=== PATIENT | female | born 1965 | race Caucasian/White ===

== ENCOUNTER 2017-07-13 15:11 | Emergency (ER) | payer OTHER ==
[2017-07-13 15:42] VITALS: BP 158/72
--- NOTE | 2017-07-13 16:00 | UC ---
Hand/Wrist HPI - HPI Summary HPI Summary: FELL ON LEFT WRIST TODAY WHILE ICE SKATING ABOUT 3 HRS [facility] NON MEDICAL. HAS SWELLING, PAIN AND DEFORMITY. - History Of Current Complaint Chief Complaint: UCUpperExtremity Stated Complaint: LFT WRIST INJURY Time Seen by Provider: 07/13/17 15:49 Hx Obtained From: Patient, Family/Nailing Machine Operator - SISTER Onset/Duration: Sudden Onset, Lasting Hours, Still Present Severity Initially: Moderate Severity Currently: Moderate Pain Intensity: 5 Pain Scale Used: 0-10 Numeric Character Of Pain: Sharp, Aching Aggravating Factor(s): Movement Alleviating Factor(s): Rest, Ice Associated Signs And Symptoms: Positive: Swelling Related History: Dominant Hand Right - Allergies/Home Medications Allergies/Adverse Reactions: Allergies Allergy/AdvReac Type Severity Reaction Status Date / Time Sulfa (Sulfonamide Allergy Rash Verified 07/13/17 15:41 Antibiotics) Home Medications: Home Medications Ibuprofen TAB* [Motrin TAB* 800 MG] 800 mg PO ONCE 07/13/17 [History Confirmed 07/13/17] PARoxetine HCL TAB* [Paxil TAB*] 30 mg PO DAILY 07/13/17 [History Confirmed ] PMH/Surg Hx/FS Hx/Imm Hx Previously Healthy: Yes - Surgical History Surgical History: Yes Surgery Procedure, Year, and Place: tubal 2003. T& A. right wrist - Family History Known Family History: Positive: Hypertension - Social History Alcohol Use: None Substance Use Type: None Smoking Status (MU): Never Smoked Tobacco Review of Systems Constitutional: Negative Skin: Negative Respiratory: Negative Cardiovascular: Negative Gastrointestinal: Negative Musculoskeletal: Arthralgia, Decreased ROM, Edema All Other Systems Reviewed And Are Negative: Yes Physical Exam Triage Information Reviewed: Yes Appearance: Well-Appearing, No Pain Distress, Well-Nourished Vital Signs: Initial Vital Signs Temp 99.5 F 07/13/17 15:35 Pulse 72 07/13/17 15:35 Resp 16 07/13/17 15:35 BP 158/72 07/13/17 15:35 Pulse Ox 98 07/13/17 15:35 Vital Signs Reviewed: Yes Eyes: Positive: Conjunctiva Clear ENT: Positive: Hearing grossly normal Neck: Positive: Supple Respiratory: Positive: No respiratory distress, No accessory muscle use Cardiovascular: Positive: Pulses Normal Abdomen Description: Positive: Soft Musculoskeletal: Positive: ROM Limited @ - LEFT WRIST, Edema @ - LEFT WRIST, Other: - MILDLY TTP LEFT WRIST RADIAL SIDE. DEFORMITY Neurological: Positive: Alert Psychological: Positive: Age Appropriate Behavior Skin: Negative: rashes Diagnostics - Radiology LEFT WRIST XRAY Xray Interpretation: Positive (See Comments) - minimally impacted fracture at the distal left radius. Radiology Interpretation Completed By: Radiologist Hand/Wrist Course/Dx - Differential Dx/Diagnosis Provider Diagnoses: minimally impacted fracture at the distal left radius Discharge - Sign-Out/Discharge Documenting (check all that apply): Discharge - Discharge Plan Condition: Stable Disposition: HOME Prescriptions: HYDROcodone/ACETAMIN 5-325 MG* [Pruden 5-325 TAB*] 1 tab PO Q6H PRN #10 tab MDD 4 PRN Reason: Pain Patient Education Materials: Wrist Fracture in Adults (ED) Referrals: Non Staff,Doctor [Primary Care Provider] - Additional Instructions: Xray today shows minimally impacted fracture at the distal left radius. Thumb spica splint and sling for comfort. Keep the splint on at all times including one sleeping until seen by sanjuana though back home in [place]. Okay to remove for quick shower. Ibuprofen as needed for discomfort. Vicodin for breakthrough. Call an orthopedist in your local area in [place] and schedule a follow-up appointment next week. Go to the ER without fail if you develop numbness, tingling, increased pain, color change or any other concerning symptoms. - Billing Disposition and Condition Condition: STABLE Disposition: HOME
--- NOTE | 2017-07-13 17:04 | RAD ---
INDICATION: Pain and swelling after a fall COMPARISON: None. TECHNIQUE: 3 views left wrist. REPORT: At the distal left radius there is irregular lucency overlying the medullary cavity. On the lateral view there is a small degree of cortical discontinuity both along the volar and dorsal aspects of the radius. IMPRESSION: X-ray findings are consistent with a minimally impacted fracture at the distal left radius.
== END 2017-07-13 17:36 | disposition home or self-care (01) ==
LOC: UCCORT 15:11
DX: S52.502A Unspecified fracture of the lower end of left radius, initial encounter for closed fracture (principal); W00.0XXA Fall on same level due to ice and snow, initial encounter; Y93.21 Activity, ice skating; Y92.9 Unspecified place or not applicable; Z88.2 Allergy status to sulfonamides
CPT/HCPCS: 99203; G0463